=== PATIENT | female | born 1955 | race Caucasian/White ===

== ENCOUNTER 2021-02-19 12:48 | Inpatient (IN) | payer MEDICARE ==
[~2021-02-19] VITALS: Ht 170.2 cm; Wt 99.0 kg
--- NOTE | 2021-02-19 13:17 | PHYS DOC ---
Past History Past Medical History: CVA Past Surgical History: Other (ABSTRACT MAKER shunt) Smoking: Non-smoker Alcohol Use: None Drug Use: None Adult General HPI HPI Patient is a 66-year-old female presenting via EMS for fall. 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 She is unsure about loss of consciousness but openly admits she does not remember much about her fall. She knows she fell forward and hit her right hand and right anterior face on cement. She states she was stunned and laid there for a while citing anterior face and right orbit pain and right shoulder pain. This fall was witnessed and so EMS was contacted and transported patient to our facility. Patient admits history of stroke with ABSTRACT MAKER shunt, takes 81 mg aspirin daily, denies any recent changes in health, recent antibiotic use or other changes in daily regiment. She has not had any sick contacts or long distance travel. She has no significant cardiac history, no history of provocative cardiac testing Review of Systems Review of Systems Fourteen body systems of review of systems have been reviewed. See HPI for pertinent positives and negative responses, other garibay all other systems are negative, non-pertinent or non-contributory Physical Exam Physical Exam Constitutional: Pt is oriented to person, place, and time. Age-appropriate with obvious contusion and abrasion noted to right anterior orbit HEENT: Head: Normocephalic and atraumatic. TMs clear, no hemotympanum Conjunctivae and EOM are normal. Pupils are equal, round, and reactive to light. Oropharynx is clear and moist. No hematomas or lacerations to face or scalp but there is ecchymosis and abrasion noted to right inferior orbit of eye without any palpable abnormalities or crepitus OP clear, no blood, no malocclusion, dentition intact Nares clear, no nasal septal hematoma Midface stable Neck: C-spine midline tender at level of C4 without step-offs Cardiovascular: Normal rate, regular rhythm and normal heart sounds. Pulmonary/Chest: Effort normal and breath sounds normal. No respiratory distress. No wheezes. CTA bilaterally Abdominal: Soft. Bowel sounds are normal. Pt exhibits no distension. There is no tenderness. Musculoskeletal: No deformities, full active and passive ROM extremities. Patient has bony tenderness to right anterior orbit, right shoulder. Does endorse right knee pain but states this is chronic and has been evaluated by primary care physician Chest wall stable Pelvis stable and non-tender No vertebral TTP and spine without stepoffs Neurological: Pt is alert and oriented to person, place, and time. Moving all extremities willfully, able to wiggle all fingers and toes Alert and oriented x 3 Motor and sensory function intact Cranial nerves II through XII intact No saddle anesthesia Medial radial and ulnar nerves of bilateral upper extremities intact Skin: Skin is warm and dry. No lacerations. Skin findings to face noted above Psychiatric: Behavior is appropriate for situation Current Patient Data Vital Signs Vital Signs Date Time Temp Pulse Resp B/P (MAP) Pulse Ox O2 Delivery O2 Flow Rate FiO2 02/19/21 12:50 97.9 84 16 88/26 94 Room Air Vital Signs Date Time Temp Pulse Resp B/P (MAP) Pulse Ox O2 Delivery O2 Flow Rate FiO2 02/21/21 08:23 94 Room Air 02/21/21 06:21 97.5 59 18 102/65 (77) Lab Results Laboratory Tests Test 02/20/21 12:05 02/20/21 16:36 02/21/21 07:49 Glucose (Fingerstick) 306 mg/dL 238 mg/dL 206 mg/dL Current Medications Medications (Trade) Dose Ordered Sig/Fabiana Route PRN Reason Start Time Stop Time Status Last Admin Dose Admin Sodium Chloride 1,000 ml @ 1,000 mls/hr 1X ONCE IV 02/19/21 13:30 02/19/21 14:29 DC 02/19/21 13:47 Fentanyl Citrate (Fentanyl 2ml Vial) 50 mcg 1X ONCE IVP 02/19/21 15:00 02/19/21 15:02 DC Fentanyl Citrate (Fentanyl 2ml Vial) 50 mcg PRN Q2HR PRN IVP PAIN 02/19/21 15:30 02/20/21 15:29 DC Acetaminophen (Tylenol) 650 mg PRN Q4HRS PRN PO FEVER > 100.3'F 02/19/21 15:30 02/20/21 15:29 DC 02/20/21 08:54 Nitroglycerin (Nitrostat) 0.4 mg PRN Q5MIN PRN SL CHEST PAIN 02/19/21 15:30 02/20/21 15:29 DC Acetaminophen/ Hydrocodone Bitart (Lortab 5/325) 2 tab 1X ONCE PO 02/19/21 15:45 02/19/21 15:46 DC 02/19/21 15:48 EKG EKG EKG ordered and interpreted by myself at 1328 hrs. as sinus rhythm at 64 bpm, unremarkable intervals, no axis deviation, no acute ischemic findings, no STEMI Radiology/Procedures Radiology/Procedures AP chest. HISTORY: Right shoulder pain, fall AP view was taken of the chest. There is no pneumothorax or pleural effusion. There is a ventriculoperitoneal shunt tube in the chest wall. Heart is normal in size. Lungs are clear. IMPRESSION: 1. No acute infiltrates. Electronically signed by: Alexys Sahu MD (02/19/2021 1:44 PM) [facility] //////////// EXAM: CT cervical spine without contrast INDICATION: Fall today COMPARISON: None TECHNIQUE: Axial CT imaging through cervical spine without intravenous contrast. Sagittal and coronal reformats were obtained. One or more of the following individualized dose reduction techniques were utilized for this examination: 1. Automated exposure control 2. Adjustment of the mA and/or kV according to patient size 3. Use of iterative reconstruction technique. FINDINGS: No acute fracture. There is 2 mm anterolisthesis of C4 on C5. Mild disc space narrowing. There are small anterior osteophytes at C4-C5 and C5-C6. There is severe left facet arthrosis at C3-C4 and C4-C5 resulting in mild left foraminal narrowing. No bony canal narrowing. Prevertebral soft tissues normal. There are calcifications in the carotid arteries. IMPRESSION: No acute osseous abnormality of the cervical spine. Electronically signed by: So Henning MD (02/19/2021 2:23 PM) [id number] //////////////// EXAM: Head and maxillofacial bone CT without contrast. HISTORY: Fall. TECHNIQUE: Computed tomographic images of the head and maxillofacial bones were obtained without contrast. *One or more of the following individualized dose reduction techniques were utilized for this examination: 1. Automated exposure control. 2. Adjustment of the mA and/or kV according to patient size. 3. Use of iterative reconstruction technique. COMPARISON: None. FINDINGS: There is a right frontal approach ventricular catheter terminating within the anterior right lateral ventricle. There is a segment of catheter also extending from the frontal horn into the foramen of Osborn. There is encephalomalacia ganglial cyst within the right frontal lobe with ex vacuo dilatation of the anterior right lateral ventricle. There is no mass effect or midline shift. The contrersa-white matter differentiation pattern is intact. No bethany picious calvarial lesion is seen. There is evidence of lens surgery. There is mild right greater than left maxillary sinus mucosal thickening. There is obstruction of the ostiomeatal units. There is rightward nasal septal deviation. There are bilateral vamsi bullosa. There is minimal osteoarthritis involving the temporal minimal joints. There is fatty stranding along the left lateral maxillary soft tissues, possibly due to a contusion given history of recent injury. There is calcified atherosclerotic plaque involving the carotid bifurcations. There are degenerative changes involving the cervical spine. This results in moderate left foraminal stenosis at C3-C4, severe left foraminal stenosis at C4-C5 and mild left foraminal stenosis at C5-C6. IMPRESSION: 1. Suspected soft tissue contusion overlying the lateral right axillary soft tissues. There is no maxillofacial bone fracture or acute intracranial finding. 2. Right frontal approach ventricular catheter and adjacent catheter segment terminating within the anterior right lateral ventricle and foramen of Osborn. There is ex vacuo dilatation of the anterior right lateral ventricle due to volume loss. There is no convincing hydrocephalus. There is no prior study available at the time of dictation to assess for change in ventricular size. 3. Bilateral cerebral white matter changes, likely due to chronic small vessel disease. 4. Mild paranasal sinus disease with obstruction of the ostiomeatal meatal units and nasal septal deviation. Electronically signed by: Emily Leija MD (02/19/2021 1:54 PM) [id number] Heart Score C/O Chest Pain: No HEART Score for Chest Pain: HEART Score for Chest Pain Response (Comments) Value History Moderately Suspicious 1 ECG Normal 0 Age > 65 2 Risk Factors >3 Risk Factors or Hx CAD 2 Troponin >1-<3x Normal Limit 1 Total 6 Risk Factors: Risk Factors: DM, Current or recent (<one month) smoker, HTN, HLP, family hi story of CAD, obesity. Risk Scores: Risk Factors: DM, Current or recent (<one month) smoker, HTN, HLP, family history of CAD, obesity. Course & Med Decision Making Course & Med Decision Making ABCs unremarkable. HPI and physical exam concerning for syncope and high risk individual. Diagnostic ER work-up concerning for elevated troponin and patient who has not endorsed any chest pain Patient's pain improved with ER intervention. I contacted cardiology service and discussed case, they agreed need to admission and felt acceptable [facility] or other with Accounting Machine Mechanic capabilities I contacted hospitalist and discussed case at length, they agreed need for admission and accepted patient under their care. I updated patient on proposed plan of care that included hospital admission for further evaluation and intervention as necessary and she was amenable Critical Care Time This patient required critical care. Due to the fact that the patient required a significant amount of one on one physician - patient contact time, ordering and review of studies, arranging urgent treatment with development of a management plan, evaluation of patients response to treatment with frequent reassessments, and discussions with other providers this patient required 40 minutes of critical care time. Critical care time was indicated due to the inherent instability and/or potential for instability in this patient. The critical care time that is allocated to this patient is above and beyond any time spent on any other billable procedures performed on this patient. Dragon Disclaimer Dragon Disclaimer This electronic medical record was generated, in whole or in part, using a voice recognition dictation system. Departure Departure: Impression: Primary Impression: Fall Additional Impressions: Elevated troponin ABSTRACT MAKER (ventriculoperitoneal) shunt status Disposition: ADMITTED INPATIENT Admitting Physician: Gino Ramos Condition: STABLE Problem Qualifiers MILLIE ROMERO DO Feb 19, 2021 13:17
[2021-02-19] MEDS ORDERED: IV NORMAL SALINE 1,000ML 1,000 ML IV ONE (13:30)
[2021-02-19 13:39] LABS: BASO % 0 % (0-3); EOS % 1 % (0-3); HEMATOCRIT 38.2 % (36.0-47.0); HEMOGLOBIN 12.9 g/dL (12.0-15.5); LYMPH # 0.8 x10^3/uL (1.0-4.8); LYMPH % 13 % (24-48); MEAN CORPUSCULAR HEMOGLOBIN 32 pg (25-35); MEAN CORPUSCULAR HGB CONC 34 g/dL (31-37); MEAN CORPUSCULAR VOLUME 95 fL (79-100); MONO # 0.5 x10^3/uL (0.0-1.1); MONO % 8 % (0-9); NEUT # 5.1 x10^3uL (1.8-7.7); NEUT % 78 % (31-73); PLATELET COUNT 85 x10^3/uL (140-400); RED BLOOD COUNT 4.03 x10^6/uL (3.50-5.40); RED CELL DISTRIBUTION WIDTH 14.2 % (11.5-14.5); WHITE BLOOD COUNT 6.5 x10^3/uL (4.0-11.0)
--- NOTE | 2021-02-19 13:46 | RAD ---
AP chest. HISTORY: Right shoulder pain, fall AP view was taken of the chest. There is no pneumothorax or pleural effusion. There is a ventriculope ritoneal shunt tube in the chest wall. Heart is normal in size. Lungs are clear. IMPRESSION: 1. No acute infiltrates. Electronically signed by: Alexys Sahu MD (02/19/2021 1:44 PM) [facility]
--- NOTE | 2021-02-19 13:56 | RAD ---
EXAM: Head and maxillofacial bone CT without contrast. HISTORY: Fall. TECHNIQUE: Computed tomographic images of the head and maxillofacial bones were obtained without cont rast. *One or more of the following individualized dose reduction techniques were utilized for this examina tion: 1. Automated exposure control. 2. Adjustment of the mA and/or kV according to patient size. 3. Use of iterative reconstruction technique. COMPARISON: None. FINDINGS: There is a right frontal approach ventricular catheter terminating within the anterior righ t lateral ventricle. There is a segment of catheter also extending from the frontal horn into the for amen of Osborn. There is encephalomalacia ganglial cyst within the right frontal lobe with ex vacuo d ilatation of the anterior right lateral ventricle. There is no mass effect or midline shift. The contreras -white matter differentiation pattern is intact. No suspicious calvarial lesion is seen. There is d[place] dence of lens surgery. There is mild right greater than left maxillary sinus mucosal thickening. Ther e is obstruction of the ostiomeatal units. There is rightward nasal septal deviation. There are bilat eral vamsi bullosa. There is minimal osteoarthritis involving the temporal minimal joints. There is fatty stranding along the left lateral maxillary soft tissues, possibly due to a contusion given hist ory of recent injury. There is calcified atherosclerotic plaque involving the carotid bifurcations. T here are degenerative changes involving the cervical spine. This results in moderate left foraminal s tenosis at C3-C4, severe left foraminal stenosis at C4-C5 and mild left foraminal stenosis at C5-C6. IMPRESSION: 1. Suspected soft tissue contusion overlying the lateral right axillary soft tissues. There is no max illofacial bone fracture or acute intracranial finding. 2. Right frontal approach ventricular catheter and adjacent catheter segment terminating within the a nterior right lateral ventricle and foramen of Osborn. There is ex vacuo dilatation of the anterior r ight lateral ventricle due to volume loss. There is no convincing hydrocephalus. There is no prior st udy available at the time of dictation to assess for change in ventricular size. 3. Bilateral cerebral white matter changes, likely due to chronic small vessel disease. 4. Mild paranasal sinus disease with obstruction of the ostiomeatal meatal units and nasal septal dev iation. Electronically signed by: Emily Leija MD (02/19/2021 1:54 PM) [id number]
--- NOTE | 2021-02-19 14:15 | EKG ---
[address] [address] Test Date: 2021-02-19 Test Time: 13:22:36 Pat Name: JAZZ MOSQUERA Department: Room: Gender: F Seam Taper Machine: ANDREAS : [id number] Requested By: MILLIE ROMERO Order Number: [id number] Reading MD: Mic Lo MD Measurements Intervals [place] Rate: 64 P: 32 IN: 136 QRS: 16 QRSD: 102 T: 6 QT: 408 QTc: 425 Interpretive Statements SINUS RHYTHM Electronically Signed On 02-21-2021 8:47:42 CDT by Mic Lo MD
[2021-02-19 14:24] LABS: CALCIUM 11.4 mg/dL (8.5-10.1); CREATININE 1.5 mg/dL (0.6-1.0); GFR 34.6; POTASSIUM 3.8 mmol/L (3.5-5.1)
--- NOTE | 2021-02-19 14:26 | RAD ---
EXAM: CT cervical spine without contrast INDICATION: Fall today COMPARISON: None TECHNIQUE: Axial CT imaging through cervical spine without intravenous contrast. Sagittal and coronal reformats were obtained. One or more of the following individualized dose reduction techniques were utilized for this examinat ion: 1. Automated exposure control 2. Adjustment of the mA and/or kV according to patient size 3. Use of iterative reconstruction technique. FINDINGS: No acute fracture. There is 2 mm anterolisthesis of C4 on C5. Mild disc space narrowing. There are sm all anterior osteophytes at C4-C5 and C5-C6. There is severe left facet arthrosis at C3-C4 and C4-C5 resulting in mild left foraminal narrowing. No bony canal narrowing. Prevertebral soft tissues normal . There are calcifications in the carotid arteries. IMPRESSION: No acute osseous abnormality of the cervical spine. Electronically signed by: So Henning MD (02/19/2021 2:23 PM) [id number]
[2021-02-19 14:30] LABS: ALBUMIN 3.5 g/dL (3.4-5.0); TOTAL BILIRUBIN 1.2 mg/dL (0.2-1.0)
[2021-02-19] MEDS ORDERED: NITROGLYCERIN SUBLINGUAL 0.4 MG BOTTLE OF 25. SL PRN (15:30)
[2021-02-19] MEDS ORDERED: HYDROcodone/APAP 5/325MG 1 TAB TABLET PO ONE (15:45)
[2021-02-19 16:55] VITALS: BP 134/84
--- NOTE | 2021-02-19 19:58 | HP ---
ADMIT DATE: 02/19/2021 HISTORY OF PRESENT ILLNESS: The patient is a 66-year-old female patient who presented to the Emergency Room with a complaint of dizziness and fall. 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 She denied any chest pain. Denied any palpitation. Denied any feeling things spinning around. She has never had similar problem like this before. She normally takes her blood pressure medication at nighttime and has taken that every day. She does have residual left-sided weakness; however, since her stroke in 1986 has been fairly independent, walks without any assistance or assistive devices, and therefore, she was brought to the Emergency Room where she was extensively investigated and has had lab work including a CBC and chemistry, which was unremarkable. Her troponin was slightly elevated at 0.080, and therefore, she was also noted to have hypercalcemia with a serum calcium of 11.4, if corrected for albumin it is probably higher, and therefore, the patient was admitted to do 2 more sets of cardiac enzymes, check her fasting lipid profile and consult Cardiology for further evaluation and treatment. PAST MEDICAL HISTORY: Significant for hypertension, hyperlipidemia, type 2 diabetes mellitus. She also had a history of intracerebral hemorrhage complicated with obstructive hydrocephalus requiring a ventriculoperitoneal shunt in 1986. She does have residual left-sided hemiparesis. PAST SURGICAL HISTORY: Significant for bilateral cataract extraction and MANAGER RECOVERY shunt placement. ALLERGIES: She has no known drug allergies. MEDICATIONS: She is currently on the following medications: She is on losartan/hydrochlorothiazide. She is on simvastatin, baby aspirin, multivitamin, metformin. FAMILY HISTORY: She has 5 brothers. The oldest brother at age of 50 because of liver cirrhosis due to excessive alcohol intake. She has 2 older brothers that had required knee surgery and also 1 of her younger brother has required knee surgery. Her sister is apparently younger and seemingly healthy. Her father at age of 78. Mother is still alive at the age of 96. SOCIAL HISTORY: She is single, lives with her mother. She does not have children. She never . She quit smoking years ago. Does not drink alcohol. She is currently on disability. REVIEW OF SYSTEMS: The patient has had bilateral cataract extraction, but denied any glaucoma or macular degeneration. Denied any earache, tinnitus or sensorineural deafness. Denied any nosebleed, stuffy nose or postnasal drip. Denied any sore throat, sore tongue, toothache, hoarseness of voice or difficulty swallowing. Denied any nausea, vomiting, diarrhea or constipation. Denied any hematemesis, melena or hematochezia. Denied any dysuria, frequency or hematuria. She denied any chest pain, shortness of breath. She denied any hematemesis, melena, hematochezia. Denied dysuria, frequency, or hematuria. Denied any chest pain, shortness of breath, orthopnea or paroxysmal nocturnal dyspnea. Denied any cough, phlegm or hemoptysis. Did complain obviously of dizziness and fall. PHYSICAL EXAMINATION: GENERAL: On arrival to the emergency room, she was somewhat hypotensive, but there was no pallor, jaundice, cyanosis. No lymphadenopathy, no thyromegaly, no jugular venous distention. No lower limb edema. VITAL SIGNS: Her heart rate was 84, blood pressure was 188/26, temperature was 97.9, respiratory rate was 16 and oxygen saturation was 94% on room air. HEAD, EYES, NOSE, AND THROAT: Normocephalic, atraumatic. NECK: Supple. HEART: Normal first and second heart sounds, no gallop, rub or murmur. CHEST: Clear to auscultation, no crepitation or rhonchi. ABDOMEN: Distended, soft, nontender. NEUROLOGIC: She is awake, alert, responding appropriately. Cranial nerves intact. She moves extremities without difficulty. SKIN: Showed that she has ecchymosis on the right cheek below her right eye. She also has some contusions and bruises over her right arm and right knee joint that is definitely more swollen than the left knee joint. LABORATORY DATA: Showed a white cell count of 6500, hemoglobin 13, hematocrit 38, MCV 95 and platelet count of 85,000 with normal manual differential. Her chemistry showed a serum sodium 141, potassium 3.8, chloride 103, bicarbonate 28, anion gap of 10, BUN 19, creatinine 1.5. Estimated GFR was 34 mL per minute. Her glucose 190, calcium was 11.4. Total bilirubin, AST, ALT, alkaline phosphatase were normal. Her CK was 427. Troponin was 0.080. Her total protein was 7, albumin was 3.5. In summary, this is a 66-year-old female patient who was admitted with dizziness and fall. She was found to have slightly elevated troponin, hypercalcemia, thrombocytopenia. My plan is to do 2 more sets of cardiac enzymes. I will check also serum phosphorus and intact PTH for possible primary hyperparathyroidism. She is on hydrochlorothiazide that might also be the cause for her hypercalcemia. Multiple myeloma is also in the differential diagnosis. We will consult the cardiology team for the slightly elevated troponin and decide on further management accordingly. ZAC DR: Johnnie TID: [id number]
[2021-02-19 20:10] VITALS: BP 138/77
[2021-02-19] MEDS ORDERED: LIRA0.6P2 SQ (20:20)
[2021-02-19] MEDS ORDERED: METF500T16 PO (20:22)
[2021-02-19] MEDS: ACETAMINOPHEN 325 MG TABLET PO PRN (21:29)
[2021-02-20] MEDS: ACETAMINOPHEN 325 MG TABLET PO PRN ×2 (04:08→08:54)
[2021-02-20 07:40] VITALS: BP 100/54
[2021-02-20 08:08] LABS: ALBUMIN/GLOBULIN RATIO 0.9 (1.0-1.7); CALCIUM 9.9 mg/dL (8.5-10.1); CREATININE 0.9 mg/dL (0.6-1.0); GFR 62.5; PHOSPHORUS 3.2 mg/dL (2.6-4.7); POTASSIUM 3.4 mmol/L (3.5-5.1); TOTAL BILIRUBIN 1.2 mg/dL (0.2-1.0); TOTAL PROTEIN 6.5 g/dL (6.4-8.2)
[2021-02-20 11:49] VITALS: BP 114/67
[2021-02-20] MEDS: POLYETHYLENE GLYCOL 3350 17 GM PACKET. PO SCH (13:00)
[2021-02-20 15:33] VITALS: BP 119/62
[2021-02-20 19:30] VITALS: BP 112/70
[2021-02-20] MEDS ORDERED: DICL20GE TP (20:28)
[2021-02-20] MEDS ORDERED: TRAM50TA PO (20:28)
[2021-02-20] MEDS ORDERED: ACETAMINOPHEN 325 MG TABLET PO PRN (20:30)
[2021-02-20] MEDS ORDERED: ACETAMINOPHEN 500 MG TABLET PO PRN (20:30)
--- NOTE | 2021-02-20 20:36 | PN ---
DATE: 02/20/2021 SUBJECTIVE: The patient is resting, slightly propped up in bed, no apparent distress, awake, alert. On questioning her, she continued to complain of pain in the right side of her face, right shoulder and right knee after she felt dizzy and fell yesterday. Her troponin was slightly elevated at 0.08 and she has two more sets of cardiac enzymes showed troponin has risen to 0.303 and then 0.219. Denied any chest pain or shortness of breath. PHYSICAL EXAMINATION: GENERAL: When I examined her, she looked well and was clearly in no apparent respiratory distress. No pallor, jaundice, cyanosis, or thyromegaly. No jugular venous distention. No limb edema. VITAL SIGNS: Her heart rate was 57, blood pressure 100/54, temperature was 97.4, respiratory rate was 16 and oxygen saturation was 96% on room air. HEAD, EYES, EARS, NOSE AND THROAT: Normocephalic. Bruises over the right cheek below the right eye. NECK: Supple. HEART: Normal first and second heart sounds. No gallop or murmur. CHEST: Clear to auscultation. No crepitation or rhonchi. ABDOMEN: Distended, soft, nontender. NEUROLOGIC: She was grossly intact. Does have painful movement of the right shoulder and also swelling of the right knee with faint bruises. LABORATORY DATA: This morning showed a serum sodium 140, potassium 3.4, chloride 105, bicarbonate 26, anion gap of 9, BUN 14, creatinine 0.9. Estimated GFR was 62 mL per minute. Her glucose 193, calcium was 9.9, phosphorus was 3.2. Total bilirubin, AST, ALT, alkaline phosphatase were normal. Total protein 6.5, albumin 3. ASSESSMENT: Dizziness and fall with pain in her right shoulder and right knee for which I have arranged for her to have an x-ray of the right shoulder and right knee joint. She did have a CT scan of the head and cervical spine, which showed that she has suspected soft tissue contusion overlying the lateral right maxillary soft tissue. There is no maxillofacial bone fracture or acute intracranial finding. Does have right frontal approach ventricular catheter and adjacent catheter segment terminating within the anterior right lateral ventricle and foramen of Monro. There is an ex vacuo dilatation of the anterior right lateral ventricle due to volume loss. There is no convincing hydrocephalus. There is no prior study available at time of dictation to assess for change in ventricular size, has bilateral cerebral white matter changes likely due to chronic small vessel disease, mild paranasal sinus disease with obstructing the ____ nasal septal deviation. I have arranged for her to have this x-ray of the right shoulder and right knee. PLAN: Continue with pain management. Continue with physical therapy. Await evaluation by the household worker. JIMMIE DR: Johnnie TID: [id number]
[2021-02-20] MEDS ORDERED: DICLOFENAC SODIUM 1% TOPICAL GEL 100GM TUBE. TP PRN (21:30)
[2021-02-20] MEDS: traMADol 50 MG TABLET PO PRN (22:04)
[2021-02-20] MEDS: DOCUSATE SODIUM 100 MG CAPSULE PO SCH (22:04)
[2021-02-21] VITALS (9 sets, daily range): BP systolic 96–127; BP diastolic 55–72
--- NOTE | 2021-02-21 03:12 | PN ---
SUBJECTIVE: A 66-year-old female who came in through the ER complaining of dizziness, had fallen while working for [employer]. The patient had severe right knee, right shoulder, right arm and right hand injuries. The patient did have some palpitations. The patient's troponin had been elevated. She has some history of hyperglycemia and being monitored for any problems with possible multiple myeloma or possible hyperparathyroidism. Otherwise, the patient is still fairly sore. She has swelling to the right forehead and underneath the right eye and the maxillary area is swollen. There is marked bruising to the right shoulder as well as to the right hand. The right knee is markedly tender to touch. OBJECTIVE: GENERAL: This is a pleasant white female, just uncomfortable. VITAL SIGNS: Blood pressure 120/60, respiratory rate 20, pulse 60, afebrile, oxygen saturation on 100%. LUNGS: Diminished but clear. CARDIOVASCULAR: Regular sinus rhythm, S1, S2, without murmur, rub, thrill, or extra heart sounds. The x-rays had been taken so far have all been negative as far as fractures go but soft tissue swelling is evident unfortunately. The patient's EKG shows normal sinus rhythm. The patient has had a previous history of a stroke. There was a right frontal approach ventricular catheter and adjacent catheter segment terminating within anterior right lateral ventricle and foramen of Monro. There is ex vacuo dilatation of the anterior right lateral ventricle due to volume loss. There was no convincing hydrocephalus, bilateral cerebral white matter changes due to small vessel disease, mild parasinus disease with obstruction of the ostiomeatal and ostiomeatal units and nasal septal deviation. Otherwise, the patient is stable. Continue to monitor. ____ she still having problems walking ____ x-rays are still pending. Blood sugars are being monitored carefully. Potassium low at 3.4, total bilirubin 1.2, AST 74. Cardiac evaluation for her elevated troponin high risk there. FINAL DIAGNOSES: Include that of vestibulitis with fall with multiple injuries to the head, face; hypercalcemia; thrombocytopenia; elevated troponin; elevated liver enzyme; morbid obesity; type 2 diabetes; GFR ____ chronic kidney disease stage 3B. EKG was normal. PLAN: Continue with present drug regimen and make further evaluation on her as indicated. ALEC/EKJeff/DICK DR: ALEC/elier TID: [id number]
--- NOTE | 2021-02-21 07:57 | RAD ---
EXAMINATION: XR SHOULDER_RIGHT 2+ VIEWS, XR KNEE_RT 1-2 VIEWS, XR HAND_RIGHT 2 VIEWS CLINICAL HISTORY: Contusions following fall TECHNIQUE: XR SHOULDER_RIGHT 2+ VIEWS, XR KNEE_RT 1-2 VIEWS, XR HAND_RIGHT 2 VIEWS Number of Images/Views: 3 shoulder, 2 hand, 2 knee COMPARISON: None FINDINGS: RIGHT SHOULDER: Glenohumeral joint alignment maintained. Minimal acromioclavicular degenerative león es. No acute fracture. Partially visualized ventriculoperitoneal shunt. RIGHT HAND: Interphalangeal degenerative changes, greatest in the first IP joint. Mild degenerative c hanges first MCP and CMC joints. Mild radiocarpal degenerative changes. No acute fracture. No focal s oft tissue swelling. RIGHT KNEE: Acute nondisplaced fibular styloid fracture suspected but only visualized on AP view. Mar ked medial compartment narrowing with near [id number] contact. Patellofemoral compartment narrowing , incompletely evaluated. Tricompartmental small marginal osteophytes. Small suprapatellar and small focal calcification along the course of the distal quadriceps tendon, compatible with chronic tendino sis. Small joint effusion. IMPRESSION: Acute nondisplaced fibular styloid fracture suspected, correlate for point tenderness and consider no nemergent MRI may to evaluate for possible internal derangement as indicated. No evidence of acute osseous abnormality in the right shoulder or right hand. Degenerative changes as described. Electronically signed by: Win Mahoney DO (02/21/2021 7:55 AM) RADHA
[2021-02-21] MEDS: DOCUSATE SODIUM 100 MG CAPSULE PO SCH ×2 (08:23→21:40)
[2021-02-21] MEDS: metFORMIN 500 MG TABLET PO SCH ×2 (08:23→17:16)
[2021-02-21] MEDS: POLYETHYLENE GLYCOL 3350 17 GM PACKET. PO SCH (08:23)
[2021-02-21] MEDS: traMADol 50 MG TABLET PO PRN ×3 (08:23→21:40)
--- NOTE | 2021-02-21 08:47 | PDOC2 ---
CARDIAC CONSULT DATE OF CONSULT DOS: DATE: 02/21/21 TIME: 08:41 REASON FOR CONSULT Reason for Consult Fall, elevated troponin REFERRING PHYSICIAN Referring Physician Richard SOURCE Source: Patient HPI History of Present Illness 66 y.o in usual state of health was at working delivering meals for [employer] and standing in parking lot and walking back to his car and fell to the floor. He did not lose consciousness. He did not have seizure type events. He simply fell he states. He denies any associated chest pain, dyspnea, orthopnea or PND. Cannot remember if he had palpitations. He has no gait issues normally. In ER his BP was low and he had some renal failure. PAST MEDICAL HISTORY Past Medical History 1. Prior brain bleed s/p craniotomy and shunt placement 3 decades ago, has some issues with that 2. HTN 3. DM2 4. Dyslipidemia. PAST SURGICAL HISTORY Past Surgical History as above FAMILY HISTORY Family History [place] SOCIAL HISTORY Social History Lives with her mother. CURRENT MEDICATIONS Current Medications Current Medications Sodium Chloride 1,000 ml @ 1,000 mls/hr 1X ONCE IV Last administered on 02/19/21at 13:47; Start 02/19/21 at 13:30; Stop 02/19/21 at 14:29; Status DC Fentanyl Citrate (Fentanyl 2ml Vial) 50 mcg 1X ONCE IVP ; Start 02/19/21 at 15:00; Stop 02/19/21 at 15:02; Status DC Fentanyl Citrate (Fentanyl 2ml Vial) 50 mcg PRN Q2HR PRN IVP PAIN; Start 02/19/21 at 15:30; Stop 02/20/21 at 15:29; Status DC Acetaminophen (Tylenol) 650 mg PRN Q4HRS PRN PO FEVER > 100.3'F Last administered on 02/20/21at 08:54; Start 02/19/21 at 15:30; Stop 02/20/21 at 15:29; Status DC Nitroglycerin (Nitrostat) 0.4 mg PRN Q5MIN PRN SL CHEST PAIN; Start 02/19/21 at 15:30; Stop 02/20/21 at 15:29; Status DC Acetaminophen/ Hydrocodone Bitart (Lortab 5/325) 2 tab 1X ONCE PO Last administered on 02/19/21at 15:48; Start 02/19/21 at 15:45; Stop 02/19/21 at 15:46; Status DC Docusate Sodium (Colace) 100 mg BID PO Last administered on 02/21/21at 08:23; Start 02/20/21 at 21:00 Polyethylene Glycol (miraLAX) 17 gm DAILY PO ; Start 02/21/21 at 12:00; Stop 02/20/21 at 12:03; Status DC Polyethylene Glycol (miraLAX) 17 gm DAILY PO Last administered on 02/21/21at 08:23; Start 02/20/21 at 12:15 Acetaminophen (Tylenol) 650 mg PRN Q4HRS PRN PO MILD PAIN / TEMP > 100.3'F; Start 02/20/21 at 20:30; Stop 02/20/21 at 20:25; Status DC Acetaminophen (Tylenol) 650 mg PRN Q4HRS PRN PO MILD PAIN / TEMP > 100.3'F; Start 02/20/21 at 20:30 Metformin HCl (Glucophage) 500 mg BIDWMEALS PO Last administered on 02/21/21at 08:23; Start 02/21/21 at 08:00 Non-Formulary Medication (Liraglutide (Victoza 3-Shivam)) 1.8 mg DAILY SQ ; Start 02/21/21 at 09:00; Status UNV Tramadol HCl (Ultram) 50 mg PRN Q6HRS PRN PO PAIN Last administered on 02/21/21at 08:23; Start 02/20/21 at 21:30 Diclofenac Sodium (Voltaren) 1 hung PRN BID PRN TP PAIN; Start 02/20/21 at 21:30 Active Scripts Active Reported Tramadol Hcl (Tramadol HCl) 50 Mg Tablet 50 Mg PO PRN Q6HRS PRN Voltaren Arthritis Pain (Diclofenac Sodium) 20 Gm Gel..gram. 20 Gm TP BID Metformin Hcl 500 Mg Tablet 1 Tab PO BID Victoza 3-Shivam (Liraglutide) 0.6 Mg/0.1 Ml Pen.injctr 1.8 Mg SQ DAILY ALLERGIES Allergies: Coded Allergies: No Known Drug Allergies (Unverified , 02/19/21) ROS Review of Systems Negative for 10/14 systems reviewed unless noted above in HPI PHYSICAL EXAM General: Alert, Oriented X3 HEENT: Other (right head bruise) Lungs: Clear to auscultation Heart: Regular rate, Normal S1, Normal S2 Abdomen: Normal bowel sounds Extremities: No clubbing Skin: No rashes Neuro: Normal tone, Sensation intact Psych/Mental Status: Mental status NL VITALS Vital Signs Vital Signs Date Time Temp Pulse Resp B/P (MAP) Pulse Ox O2 Delivery O2 Flow Rate FiO2 02/21/21 08:23 94 Room Air 02/21/21 06:21 97.5 59 18 102/65 (77) LABS LABS Laboratory Tests Test 02/19/21 13:20 02/19/21 13:54 02/19/21 17:38 02/19/21 18:43 White Blood Count 6.5 x10^3/uL (4.0-11.0) Red Blood Count 4.03 x10^6/uL (3.50-5.40) Hemoglobin 12.9 g/dL (12.0-15.5) Hematocrit 38.2 % (36.0-47.0) Mean Corpuscular Volume 95 fL (79-100) Mean Corpuscular Hemoglobin 32 pg (25-35) Mean Corpuscular Hemoglobin Concent 34 g/dL (31-37) Red Cell Distribution Width 14.2 % (11.5-14.5) Platelet Count 85 x10^3/uL (140-400) Neutrophils (%) (Auto) 78 % (31-73) Lymphocytes (%) (Auto) 13 % (24-48) Monocytes (%) (Auto) 8 % (0-9) Eosinophils (%) (Auto) 1 % (0-3) Basophils (%) (Auto) 0 % (0-3) Neutrophils # (Auto) 5.1 x10^3uL (1.8-7.7) Lymphocytes # (Auto) 0.8 x10^3/uL (1.0-4.8) Monocytes # (Auto) 0.5 x10^3/uL (0.0-1.1) Eosinophils # (Auto) 0.0 x10^3/uL (0.0-0.7) Basophils # (Auto) 0.0 x10^3/uL (0.0-0.2) Sodium Level 141 mmol/L (136-145) Potassium Level 3.8 mmol/L (3.5-5.1) Chloride Level 103 mmol/L (98-107) Carbon Dioxide Level 28 mmol/L (21-32) Anion Gap 10 (6-14) Blood Urea Nitrogen 19 mg/dL (7-20) Creatinine 1.5 mg/dL (0.6-1.0) Estimated GFR (Cockcroft-Gault) 34.6 BUN/Creatinine Ratio 13 (6-20) Glucose Level 190 mg/dL (70-99) Calcium Level 11.4 mg/dL (8.5-10.1) Total Bilirubin 1.2 mg/dL (0.2-1.0) Aspartate Amino Transf (AST/SGOT) 53 U/L (15-37) Alanine Aminotransferase (ALT/SGPT) 41 U/L (14-59) Alkaline Phosphatase 95 U/L (46-116) Creatine Kinase 427 U/L (26-192) Troponin I Quantitative 0.080 ng/mL (0-0.055) 0.303 ng/mL (0-0.055) Total Protein 7.0 g/dL (6.4-8.2) Albumin 3.5 g/dL (3.4-5.0) Albumin/Globulin Ratio 1.0 (1.0-1.7) Glucose (Fingerstick) 192 mg/dL (70-99) Test 02/19/21 21:32 02/20/21 07:00 02/20/21 07:56 02/20/21 12:05 Troponin I Quantitative 0.219 ng/mL (0-0.055) Sodium Level 140 mmol/L (136-145) Potassium Level 3.4 mmol/L (3.5-5.1) Chloride Level 105 mmol/L (98-107) Carbon Dioxide Level 26 mmol/L (21-32) Anion Gap 9 (6-14) Blood Urea Nitrogen 14 mg/dL (7-20) Creatinine 0.9 mg/dL (0.6-1.0) Estimated GFR (Cockcroft-Gault) 62.5 BUN/Creatinine Ratio 16 (6-20) Glucose Level 193 mg/dL (70-99) Calcium Level 9.9 mg/dL (8.5-10.1) Phosphorus Level 3.2 mg/dL (2.6-4.7) Total Bilirubin 1.2 mg/dL (0.2-1.0) Aspartate Amino Transf (AST/SGOT) 74 U/L (15-37) Alanine Aminotransferase (ALT/SGPT) 37 U/L (14-59) Alkaline Phosphatase 85 U/L (46-116) Total Protein 6.5 g/dL (6.4-8.2) Albumin 3.0 g/dL (3.4-5.0) Albumin/Globulin Ratio 0.9 (1.0-1.7) Glucose (Fingerstick) 193 mg/dL (70-99) 306 mg/dL (70-99) Test 02/20/21 16:36 02/21/21 07:49 Glucose (Fingerstick) 238 mg/dL (70-99) 206 mg/dL (70-99) IMAGES IMAGES CXR/EKG/Tele unremarkable. ASSESSMENT/PLAN Assessment/Plan 1. Elevated troponin - likely type 2 2. Fall - appears to be orthostatic in nature. No clear CV issues. (Normal exam and EKG) 3. HTN 4. DM2 5. Dyslipidemia. Recommendations: 1. Plan for orthostatic vital signs. 2. Outpt stress test and event monitor. Supportive care. Ok to DC from CV standpoint. JOEY NAIK MD Feb 21, 2021 08:46
[2021-02-21] MEDS: NON FORMULARY ITEM (Liraglutide (Victoza 3-Pak) 1.8 MG) SQ SCH (09:00)
[2021-02-21] MEDS ORDERED: POLYETHYLENE GLYCOL 3350 17 GM PACKET. PO SCH (12:00)
[2021-02-21] MEDS: LIDOCAINE (700MG/PATCH) PATCH. TD SCH (12:12)
[2021-02-21] MEDS: glipiZIDE 5 MG TABLET PO SCH ×2 (13:30→17:16)
[2021-02-21] MEDS: PATCH REMOVAL. MC SCH (21:00)
--- NOTE | 2021-02-21 21:50 | PN ---
SUBJECTIVE: This is a 66-year-old female who had passed out and fell injuring her face as well as left shoulder, possible fracture to the fibular area of her right knee. The patient says she is feeling better. She requires PT, OT. OBJECTIVE: VITAL SIGNS: Blood pressure 96/60, respiration 18, pulse 60, afebrile. GENERAL: The patient is alert and oriented, swelling going down on the face, but still aches here and there. LUNGS: Diminished but basically clear. CARDIOVASCULAR: Regular sinus rhythm. Cleared by cardiology for her chest pain. NEUROLOGIC: Stable. Patient continues to make steady progress in that regard. Blood sugars are still elevated and required aggressive therapy there to bring him down, even more aggressively. She is just on 500 mg of metformin. We will start her on some other medications for that as well. IMPRESSION: 1. Syncope. 2. Contusion to the face. 3. Contusion to the right knee and right shoulder. 4. Right hand non-acute nondisplaced fibular styloid fracture was suspected. 5. Morbid obesity. 6. Chest pain, elevated troponins, will get Cardiac workup as an outpatient with Dr. Lo. 7. Type 2 diabetes. PJC/EKT DR: ALEC/elier TID: [id number]
[2021-02-22 05:22] VITALS: BP 112/72
[2021-02-22] MEDS: LIDOCAINE (700MG/PATCH) PATCH. TD SCH (08:22)
[2021-02-22] MEDS: DOCUSATE SODIUM 100 MG CAPSULE PO SCH ×2 (08:22→21:02)
[2021-02-22] MEDS: NON FORMULARY ITEM (Liraglutide (Victoza 3-Pak) 1.8 MG) SQ SCH (08:22)
[2021-02-22] MEDS: glipiZIDE 5 MG TABLET PO SCH ×2 (08:22→15:48)
[2021-02-22] MEDS: metFORMIN 500 MG TABLET PO SCH ×2 (08:22→15:49)
[2021-02-22] MEDS: POLYETHYLENE GLYCOL 3350 17 GM PACKET. PO SCH (08:22)
[2021-02-22 10:32] VITALS: BP 123/72
[2021-02-22] MEDS ORDERED: ONDANSETRON PF 4 MG/2 ML VIAL. IVP PRN (10:45)
[2021-02-22 15:55] VITALS: BP 128/73
[2021-02-22 19:55] VITALS: BP 128/74
[2021-02-22] MEDS: PATCH REMOVAL. MC SCH (21:02)
[2021-02-22] MEDS: traMADol 50 MG TABLET PO PRN (21:03)
[2021-02-22 22:58] VITALS: BP 127/79
--- NOTE | 2021-02-23 01:05 | PN ---
DATE: 02/21/2021 REFERRING PHYSICIAN: Dr. Ramos. SUBJECTIVE: The patient continues to complain of mild dizziness and mild headache. She denies chest pain, shortness of breath, palpitation, dysarthria or dysphagia. OBJECTIVE: GENERAL: A well-developed, well-nourished female in no acute distress. VITAL SIGNS: Blood pressure 96/60, respiratory rate 18, pulse is 58, oxygen saturation is 97% on room air. HEENT: Normocephalic, atraumatic, otherwise unremarkable. NECK: Supple, negative for carotid bruit, lymphadenopathy or thyromegaly. LUNGS: Clear to A and P. CARDIOVASCULAR: Regular rate and rhythm, normal S1, S2. There is no S3, S4 or murmur. ABDOMEN: Soft. Bowel sounds positive. EXTREMITIES: Negative for cyanosis, clubbing or pedal edema. NEUROLOGIC: Normal mental status and intact cranial nerves. There is a mild weakness of the left upper and lower extremities compared to those on the right side. Sensory examination revealed normal pinprick and light touch senses throughout. Deep tendon reflexes were symmetric and active without pathologic responses. Gait is normal. IMPRESSION: 1. Sudden onset of syncope of unknown etiology, rule out cardiac arrhythmia with current mild bradycardia. 2. Multiple medical problems include diabetes mellitus type 2, hypertension, hyperlipidemia and elevated troponin level. 3. No evidence of orthostatic hypotension. RECOMMENDATIONS: 1. Continue with current management initiated by Dr. Menjivar and Dr. Ramos. 2. Await cardiology consult. 3. Physical therapy evaluation. The patient is neurologically stable. SHEYLA DR: Sachin TID: [id number]
--- NOTE | 2021-02-23 01:05 | CONS ---
DATE OF CONSULTATION: 02/20/2021 REFERRING PHYSICIAN: Dr. Menjivar. REASON FOR CONSULTATION: Syncope versus TIA. HISTORY OF PRESENT ILLNESS: This is a 66-year-old right-handed female who was admitted through the emergency room on 02/19/2021 on account of a sudden onset of dizziness resulted in a fall. 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 Subsequently, she started having severe dizziness described as spinning, resulted in a fall forward on her face causing a right facial contusion. The patient denies any previous symptoms of chest pain, shortness of breath or palpitation or headaches. The patient denies any complete loss of consciousness. The patient has not had any similar episodes in the past; however, she has had a mild left-sided weakness secondary to previous stroke in 1986. The patient, however, has been independent in walking without assistance. A nonenhanced head CT scan revealed a contusion over the right maxillary, but no acute intracranial process, but it showed an ex vacuo dilatation of the anterior right lateral ventricle and chronic small vessel ischemic changes along with a mild paraspinal sinus disease. PAST MEDICAL HISTORY: Significant for hypertension, hyperlipidemia, diabetes mellitus, intracerebral hemorrhage with obstructive hydrocephalus, required ventriculoperitoneal shunt in 1986. PAST SURGICAL HISTORY: Positive for bilateral cataract extraction and [employer] shunt placement. FAMILY HISTORY: Positive for cirrhosis and alcohol abuse. Father at age of 78 and mother at age of 96. SOCIAL HISTORY: The patient is single. She denies smoking, alcohol drinking or illicit drug use. CURRENT HOME MEDICATION: Losartan/hydrochlorothiazide, ____ simvastatin, baby aspirin, metformin, and multivitamins. ALLERGIES: No known drug allergies. PHYSICAL EXAMINATION: GENERAL: Obese female in no acute distress. She weighs 99 kilos. VITAL SIGNS: Blood pressure is 114/67, respiratory rate 18, pulse is 59, oxygen saturation is 94% on room air and temperature is 98.2. HEENT: Normocephalic with right maxillary contusion. NECK: Supple. Negative for carotid bruit, lymphadenopathy or thyromegaly. LUNGS: Clear to A and P. CARDIOVASCULAR: Regular rate and rhythm. Normal S1, S2. There is no S3, S4 or murmur. ABDOMEN: Soft. Bowel sounds positive. EXTREMITIES: Negative for cyanosis, clubbing or pedal edema. NEUROLOGIC: Mental Status: Patient is alert and oriented x3. Speech is fluent. There is no language dysfunction. Memory, judgment and abstracting thinkings are normal. The patient denies hallucination or delusion. Cranial nerves: Visual olivas are full. The pupils are reactive to light and accommodation. Extraocular movements are intact. There is no nystagmus. There is no facial motor or sensory deficit. Hearing is intact bilaterally. The palate is elevated symmetrically. Sternocleidomastoid muscles are powerful bilaterally. The patient shrugs her shoulders symmetrically, protrudes her tongue in the midline without fasciculation or atrophy. Motor Examination: No focal muscle bulk wasting. The tone is normal. The strength is 4/5 in the left upper and lower extremities. The strength elsewhere was 5/5 throughout. Sensory examination revealed a diminished pinprick and light touch senses over the right upper and lower extremities compared to those on the left with normal findings on the left side. Deep tendon reflexes were symmetric and hypoactive with absent Achilles responses. Gait: The stance is steady. DIAGNOSTIC DATA: CT scan of the head revealed no acute intracranial process, but it shows chronic small vessel ischemic changes. Chest x-ray revealed no acute infiltrate and cervical spine CT scan revealed no acute abnormalities, but it showed a small osteophyte at C4-C5 and C5-C6. LABORATORY DATA: CBC revealed blood cells of 6500, hemoglobin 12.9, hematocrit 38.2, platelet count 85 consistent with thrombocytopenia. Chemistry revealed troponin level of 0.219 with elevated AST, normal ALT and calcium of 9.9. IMPRESSION: 1. Acute onset of dizziness resulted in complete falls forward without loss of consciousness consistent with syncopal episode. However, the patient denies any preceding chest pain or shortness of breath or palpitation. 2. Multiple medical problems include hypertension, hyperlipidemia, diabetes mellitus, remote old stroke resulted in mild paresis of the left upper and lower extremities. 3. Thrombocytopenia. RECOMMENDATION: 1. Continue with current management initiated by Dr. Menjivar. 2. The patient may need a cardiology consult to rule out cardiac arrhythmias versus coronary artery disease. The patient is neurologically stable. STEPH DR: Sachin TID: [id number]
--- NOTE | 2021-02-23 01:09 | PN ---
DATE: 02/22/2021 REFERRING PHYSICIAN: Dr. Ramos. SUBJECTIVE: The patient denies any new medical or neurological complaints. She denies headaches. She feels much better this morning. She denies dysarthria, dysphagia or palpitation. OBJECTIVE: GENERAL: Obese female in no acute distress. VITAL SIGNS: Blood pressure 123/72, respiratory rate 18, pulse is 63, oxygen saturation 93%, temperature 97.8. HEENT: Normocephalic and atraumatic, otherwise unremarkable. NECK: Supple. Negative for carotid bruit, lymphadenopathy or thyromegaly. LUNGS: Clear to A and P. CARDIOVASCULAR: Regular rate and rhythm, normal S1 and S2. There is no S3, S4 or murmur. ABDOMEN: Soft. Bowel sounds positive. EXTREMITIES: Negative for cyanosis, clubbing or edema. NEUROLOGIC: Normal mental status and intact cranial nerves. Motor examination revealed no focal muscle bulk wasting. The tone is normal. The strength is 4/5 in the left upper and lower extremities. The strength elsewhere was 5/5 throughout. Sensory examination revealed normal pinprick, light touch senses throughout. Deep tendon reflexes were symmetric and hypoactive without pathology responses. Gait is normal. IMPRESSION: 1. Sudden onset of dizziness resulted in syncope and fall forwards with nonenhanced head CT scan consistent with chronic small vessel ischemic changes. 2. Multiple medical problems include hypertension, hyperlipidemia, diabetes mellitus type 2, thrombocytopenia, unknown etiology. RECOMMENDATION: Continue with medical and psychiatric care along with Cardiology recommendations. KATLYN/BETTINA DR: KATLYN/elier TID: [id number]
--- NOTE | 2021-02-23 05:30 | PN ---
SUBJECTIVE: The patient had a concussion following syncopal spells. The patient had elevated cardiac enzymes, but seems to be doing fairly well there. She is still very weak. She had a fracture to the fibular area of her lower right leg. The patient otherwise is still in quite a bit of pain, contusion to the face, does not seem quite her normal self as well probably from the concussion. OBJECTIVE: VITAL SIGNS: Blood pressure 128/73, respiratory rate 20, pulse 60, afebrile, 94 on room air. GENERAL: The patient is alert and oriented, more or less baseline off from knowing this patient. The swelling underneath the right eye seems to be diminishing. HEENT: The patient's mouth and throat are normal. EYES were PERRL. Good conjugate movement. The patient is following and tracking well there. LUNGS: Diminished but clear. CARDIOVASCULAR: Regular sinus rhythm. ABDOMEN: Soft, nontender, protuberant. EXTREMITIES: No clubbing, cyanosis, nor edema. NEUROLOGIC: The patient is alert and oriented, still having quite a bit of pain and weakness in the legs. We will continue to monitor on her blood sugars as well as getting PT, OT to work with her and stabilizing her with her movements. IMPRESSION: Therefore, syncope; contusion of the face; concussion; contusion of the right knee and right shoulder; right nonacute, nondisplaced fibular styloid fracture with suspected fracture there; morbid obesity; chest pain; elevated troponins; type 2 diabetes; obesity. PLAN: The patient continues to be monitored. Physical and occupational therapy and rehab is a consideration for this patient. ALEC/JACOBO/AMY DR: Mindy TID: [id number]
[2021-02-23 06:15] VITALS: BP 129/52
--- NOTE | 2021-02-23 08:19 | PDOC ---
CARDIO Progress Notes Date & Time Date of Service DATE: 02/23/21 TIME: 08:16 Time of Evaluation 08:16 Subjective Notes No dizziness, diaphoresis, chest pain, shortness of breath. Vitals Vitals Vital Signs Date Time Temp Pulse Resp B/P (MAP) Pulse Ox O2 Delivery O2 Flow Rate FiO2 02/23/21 06:15 97.6 63 20 129/52 (77) 92 Room Air Weight Weight [ ] Input and Output I.O. Intake and Output 02/23/21 07:00 Intake Total 720 ml Balance 720 ml Intake Oral 720 ml # Voids 4 Laboratory Labs Laboratory Tests Test 02/21/21 12:07 02/21/21 17:14 02/21/21 20:40 02/22/21 07:36 Glucose (Fingerstick) 258 mg/dL (70-99) 250 mg/dL (70-99) 229 mg/dL (70-99) 161 mg/dL (70-99) Test 02/22/21 11:47 02/22/21 21:13 02/23/21 07:59 Glucose (Fingerstick) 179 mg/dL (70-99) 143 mg/dL (70-99) 145 mg/dL (70-99) Physical Exams HEENT: Neck Supple W Full Motion Chest: Symmetric Lungs: Clear to Auscultation Heart: RRR Abdomen: Soft N/T Extremities: No Edema Neurology: alert, oriented, follow commands Assessment Assessment 1. Elevated troponin; peak 0.3. Most probably type II, demand ischemia 2. Fall - appears to be orthostatic in nature. No clear CV issues. 3. HTN; controlled 4. DM2 5. Dyslipidemia. Recommendations: Outpatient stress test and event monitor as arranged Follow up in our office with Dr. Lo as scheduled May discharge from a CV standpoint BK ORONA APRN Feb 23, 2021 08:19
--- NOTE | 2021-02-23 08:24 | PN ---
SUBJECTIVE: Patient denies any new medical or neurological complaints. She denies dizziness, headaches, but she continues to have some soreness of the right shoulder secondary to pain. OBJECTIVE: GENERAL: An obese female in no acute distress. VITAL SIGNS: Blood pressure 129/52, respiratory rate 20, pulse is 63, oxygen saturation is 92%, and temperature is 97.6. HEENT: Normocephalic, atraumatic, otherwise unremarkable. NECK: Supple, negative for carotid bruit, lymphadenopathy or thyromegaly. LUNGS: Clear to A and P. CARDIOVASCULAR: Regular rate and rhythm, normal S1, S2. There is no S3, S4 or murmur. ABDOMEN: Soft. Bowel sounds positive. EXTREMITIES: Negative for cyanosis, clubbing or pedal edema. NEUROLOGIC: The patient has normal mental status and intact cranial nerves. There is no focal motor or sensory deficits. Deep tendon reflexes were symmetric, but hypoactive without pathology responses. Gait is normal. IMPRESSION: 1. Sudden onset of dizziness, resulted in syncopal episode and falls, right shoulder pain and right facial maxillary contusion. 2. Multiple medical problems include hypertension, hyperlipidemia, diabetes mellitus type 2, thrombocytopenia of unknown etiology. RECOMMENDATIONS: Continue with current medical care. The patient is neurologically stable. CARLA DR: Sachin TID: [id number]
[2021-02-23] MEDS: glipiZIDE 5 MG TABLET PO SCH (08:31)
[2021-02-23] MEDS: LIDOCAINE (700MG/PATCH) PATCH. TD SCH (08:31)
[2021-02-23] MEDS: POLYETHYLENE GLYCOL 3350 17 GM PACKET. PO SCH (08:31)
[2021-02-23] MEDS: metFORMIN 500 MG TABLET PO SCH (08:31)
[2021-02-23] MEDS: NON FORMULARY ITEM (Liraglutide (Victoza 3-Pak) 1.8 MG) SQ SCH (08:31)
[2021-02-23] MEDS: DOCUSATE SODIUM 100 MG CAPSULE PO SCH (08:31)
[2021-02-23] MEDS ORDERED: LIDO700A21 TD (09:23)
[2021-02-23] MEDS ORDERED: GLIP5TAB10 PO (09:23)
--- NOTE | 2021-02-23 10:17 | DS ---
HOSPITAL COURSE: The patient is a 66-year-old female who came in after a syncopal spell, but had a concussion, fell, hit her head, had a large contusion underneath the right eye as well as the upper forehead, somewhat confused at first. The patient also had injury to her right knee, possible fracture to the fibular area as well as an injury to her right hand and right shoulder. All those have been noted on x-rays, please kindly see those. Had had facial bones, chest x-ray, cervical spine and the like. The patient's blood pressure 130/50, respiratory rate 20, pulse 63, afebrile. The patient was fairly weak at first. The patient did have some elevated cardiac enzymes. She will be followed by Cardiology as an outpatient as she will need to be followed up on that. Her troponins were 0.3 and 0.2, albumin 3. Blood sugars 190 to low 200s, started on glipizide and brought that down to the reasonable range. The patient otherwise sodium and potassium of 141 and 3.8, BUN and creatinine 19 and 1.5, calcium was slightly elevated at 11.4 although that did come down 9.9 with hydration. Blood sugars have come down to 145. Hemoglobin and hematocrit 12 and ____. The patient continued to be monitored carefully, make further evaluation as an outpatient. The patient will be discharged home. IMPRESSION: Concussion secondary to fall, contusion to the head as well as moderate protein malnutrition, type 2 diabetes, morbid obesity, injury to her right knee and hand and will be discharged for rehab. ALEC/ERICK/SHIV DR: ALEC/elier TID: [id number]
== END 2021-02-23 11:00 | disposition home or self-care (01) | DRG 314 ==
LOC: ER 12:48 → 1 SOUTH 16:33
PROVIDERS: ADMIT Family Medicine; ATTEND Family Medicine
DX: I95.9 Hypotension, unspecified (principal); N17.0 Acute kidney failure with tubular necrosis; E44.0 Moderate protein-calorie malnutrition; I69.354 Hemiplegia and hemiparesis following cerebral infarction affecting left non-dominant side; E86.0 Dehydration; S40.011A Contusion of right shoulder, initial encounter; S80.01XA Contusion of right knee, initial encounter; D69.6 Thrombocytopenia, unspecified; Z68.34 Body mass index [BMI] 34.0-34.9, adult; E66.01 Morbid (severe) obesity due to excess calories; E78.5 Hyperlipidemia, unspecified; E83.52 Hypercalcemia; R77.8 Other specified abnormalities of plasma proteins; N18.9 Chronic kidney disease, unspecified; E11.22 Type 2 diabetes mellitus with diabetic chronic kidney disease; I12.9 Hypertensive chronic kidney disease with stage 1 through stage 4 chronic kidney disease, or unspecified chronic kidney disease; R74.8 Abnormal levels of other serum enzymes; H83.09 Labyrinthitis, unspecified ear; W01.0XXA Fall on same level from slipping, tripping and stumbling without subsequent striking against object, initial encounter; Z79.82 Long term (current) use of aspirin; Z87.891 Personal history of nicotine dependence; Z98.2 Presence of cerebrospinal fluid drainage device; Z98.41 Cataract extraction status, right eye; Z98.42 Cataract extraction status, left eye; Y93.89 Activity, other specified; Y92.89 Other specified places as the place of occurrence of the external cause; Y99.8 Other external cause status
CPT/HCPCS: 36415; 70450; 70486; 71045; 72125; 73030; 73120; 73560; 80053; 82550; 82947; 83970; 84100; 84484; 85025; 93005; 96360; 96361; J2405; 99285-25; J7030